=== PATIENT | female | born 2000 | race Caucasian/White ===

== ENCOUNTER 2024-04-20 23:24 | Emergency (ER) | payer BC ==
[~2024-04-20] VITALS: Ht 167.6 cm; Wt 89.4 kg
[2024-04-20 23:29] VITALS: BP 102/69
== END 2024-04-21 00:38 | disposition home or self-care (01) ==
LOC: ER 23:24
DX: M25.512 Pain in left shoulder (principal)
CPT/HCPCS: 99283